=== PATIENT | female | born 1985 | race Caucasian/White ===

== ENCOUNTER → 2017-04-25 | Outpatient (CLI) | payer BC ==
[2017-04-25 17:04] LABS: % Iron Saturation 39.6 % (20-50)
== END ==
LOC: MMGSC 11:42
PROVIDERS: ATTEND Family Medicine
DX: M79.1 Myalgia (principal); R53.83 Other fatigue; L03.90 Cellulitis, unspecified
CPT/HCPCS: 36415; 82728; 83540; 83550; 83735; 87070; 87075; 87205

== ENCOUNTER → 2021-02-22 | Outpatient (CLI) | payer BC ==
--- NOTE | 2021-02-22 13:51 | MM ---
Reason for exam: screening (asymptomatic). Baseline mammogram. History: Family history of breast cancer in maternal grandmother at age 40. Physical Findings: Nurse did not find any significant physical abnormalities on exam. MG 3D Screening Mammo W/Cad Bilateral CC and MLO view(s) were taken. The breast tissue is heterogeneously dense. This may lower the sensitivity of mammography. There is no discrete abnormality. These results were verbally communicated with the patient and result sheet given to the patient on 02/22/21. ASSESSMENT: Negative, BI-RAD 1 RECOMMENDATION: Routine screening mammogram of both breasts at age 39.
== END | disposition home or self-care (01) ==
LOC: RADMAMWWP 12:29
PROVIDERS: ATTEND Family Medicine
DX: Z12.31 Encounter for screening mammogram for malignant neoplasm of breast (principal)
CPT/HCPCS: 77063; 77067

== ENCOUNTER 2022-08-22 18:26 | Emergency (ER) | payer OTHER ==
[2022-08-22 18:32] VITALS: TEMP 98
[2022-08-22] MEDS ORDERED: MECLIZINE 12.5 MG TAB PO STA (19:59)
[2022-08-22] MEDS ORDERED: SODIUM CHLORIDE 0.9% 1,000 ML IV STA (19:59)
[2022-08-22 20:31] LABS: Basophils # (A) 0.1 k/uL (0-0.2); Basophils % (A) 1 %; Eosinophils # (A) 0.1 k/uL (0-0.7); Eosinophils % (A) 1 %; HCT 38.5 % (34.0-46.0); HGB 13.5 gm/dL (11.4-16.0); Lymphocytes # (A) 1.8 k/uL (1.0-4.8); Lymphocytes % (A) 17 %; MCH 30.7 pg (25.0-35.0); MCHC 35.1 g/dL (31.0-37.0); MCV 87.5 fL (80.0-100.0); Mean Platelet Volume 7.6; Monocytes # (A) 0.5 k/uL (0-1.0); Monocytes % (A) 5 %; Neutrophils # (A) 8.1 k/uL (1.3-7.7); Neutrophils % (A) 76 %; Platelet Count 247 k/uL (150-450); RDW 12.4 % (11.5-15.5); WBC 10.7 k/uL (3.8-10.6)
[2022-08-22 20:35] LABS: Appearance,Urine Cloudy (Clear); Bacteria,Urine Rare /hpf; Bilirubin,Urine Negative (Negative); Blood,Urine Negative (Negative); Color,Urine Light Yellow; Glucose,Urine (UA) Negative (Negative); Ketones,Urine Negative (Negative); Leukocyte Esterase,Urine Trace (Negative); Mucus,Urine Rare /hpf; Nitrite,Urine Negative (Negative); PH, Urine 7.5 (5.0-8.0); Protein,Urine Negative (Negative); RBC,Urine <1 /hpf (0-5); Squamous Epithelial Cell,Urine 10 /hpf (0-4); Urobilinogen,Urine <2.0 mg/dL (<2.0); WBC,Urine 4 /hpf (0-5)
[2022-08-22 20:49] LABS: ALT 19 U/L (4-34); AST 22 U/L (14-36); African American GFR (CKD) >90 (>60 ml/min/1.73 sqM); Albumin 4.4 g/dL (3.5-5.0); Alkaline Phosphatase 52 U/L (38-126); Anion Gap 13 mmol/L; Blood Urea Nitrogen 12 mg/dL (7-17); Carbon Dioxide 25 mmol/L (22-30); Chloride 101 mmol/L (98-107); Glucose 81 mg/dL (74-99); Non-African American GFR(CKD) >90 (>60 ml/min/1.73 sqM); Potassium 3.1 mmol/L (3.5-5.1); Sodium 139 mmol/L (137-145); Total Bilirubin 0.3 mg/dL (0.2-1.3); Total Protein 6.9 g/dL (6.3-8.2)
[2022-08-22] MEDS ORDERED: POTASSIUM CHLORIDE ER 20 MEQ TAB.ER PO STA (20:53)
--- NOTE | 2022-08-22 20:54 | ED ---
Dizziness HPI - General Source: patient Mode of arrival: ambulatory Limitations: no limitations <Marcelina Perkins - Last Filed: 08/22/22 22:00> <Nino Jeffrey - Last Filed: 08/22/22 23:53> - General Chief Complaint: Dizziness Stated Complaint: hypertension Time Seen by Provider: 08/22/22 18:49 - History of Present Illness Initial Comments: 37-year-old female with past history of hypertension, seizure disorder who presents to the emergency department with dizziness. Patient reports to an upper respiratory infection for the past 2 weeks. Admits that she has had cough, sinus pressure. She took a Covid test which was negative. States that today she woke up with vertiginous symptoms. Feels as if the room is spinning. Symptoms are not worse with positional changes. Denies ear pain or sore throat. She also has a dull frontal headache. No visual changes. No history of similar in the past. Denies any lateralizing symptoms. No facial droop or slurred speech. Denies ataxic gait. She went to an urgent care where they told her that her blood pressure was elevated. She used to take Norvasc 2.5 mg however was taken off one month ago by her primary care physician. She called her primary care after the urgent care visit and they told her that she should start taking her Norvasc again. She did take a dose around 4 PM today. They recommended that if she continues to have symptoms that she needed to be department. She denies any chest pain, shortness of breath, nausea, vomiting. No concern for . No other alleviating, precipitating or modifying factors (Marcelina Perkins) - Related Data Home Medications Medication Instructions Recorded Confirmed Dextroamphetamine/Amphetamine 20 mg PO BID 08/22/22 08/22/22 [Adderall 20 mg Tablet] FLUoxetine HCL 40 mg PO DAILY 08/22/22 08/22/22 amLODIPine [Norvasc] 2.5 mg PO DAILY 08/22/22 08/22/22 Previous Rx's Medication Instructions Recorded Meclizine [Antivert] 25 mg PO TID PRN 7 Days #21 tab 08/22/22 diazePAM [Valium] 2 mg PO BID PRN 3 Days #6 tab 08/22/22 Allergies Allergy/AdvReac Type Severity Reaction Status Date / Time No Known Allergies Allergy Verified 08/22/22 22:40 Review of Systems ROS Other: All systems not noted in ROS Statement are negative. <Marcelina Perkins - Last Filed: 08/22/22 22:00> ROS Other: All systems not noted in ROS Statement are negative. <Nino Jeffrey - Last Filed: 08/22/22 23:53> ROS Statement: Those systems with pertinent positive or pertinent negative responses have been documented in the HPI. Past Medical History Past Medical History: Hypertension, Osteoarthritis (OA), Seizure Disorder Additional Past Medical History / Comment(s): seizure in 2001 History of Any Multi-Drug Resistant Organisms: None Reported Past Surgical History: Orthopedic Surgery Additional Past Surgical History / Comment(s): Bunionectomy on the right foot followed by 2 reconstructive surgeries Past Anesthesia/Blood Transfusion Reactions: No Reported Reaction Past Psychological History: Anxiety, Depression Smoking Status: Never smoker Past Alcohol Use History: None Reported Past Drug Use History: None Reported - Past Family History Mother Additional Family Medical History / Comment(s): Mother is alive at age 50 with history of thoracic aortic aneurysm and aortic valve replacement Father Additional Family Medical History / Comment(s): Father is alive at age 51 with history of Wemwh-Zuqxhlpex-Tarcf syndrome Brother(s) Additional Family Medical History / Comment(s): She has one brother with cardiomegaly. She has one sister that is healthy with no major medical pro blems. Patient states she has a grandfather that at age 55 from a myocardial infarction. <Marcelina Perkins - Last Filed: 08/22/22 22:00> General Exam Limitations: no limitations General appearance: alert, in no apparent distress Head exam: Present: atraumatic, normocephalic, normal inspection Eye exam: Present: normal appearance, PERRL, EOMI, nystagmus. Absent: scleral icterus, conjunctival injection, periorbital swelling ENT exam: Present: normal exam, mucous membranes moist Neck exam: Present: normal inspection. Absent: tenderness, meningismus, lymphadenopathy Respiratory exam: Present: normal lung sounds bilaterally. Absent: respiratory distress, wheezes, rales, rhonchi, stridor Cardiovascular Exam: Present: regular rate, normal rhythm, normal heart sounds. Absent: systolic murmur, diastolic murmur, rubs, gallop, clicks GI/Abdominal exam: Present: soft, normal bowel sounds. Absent: distended, tenderness, guarding, rebound, rigid Extremities exam: Present: normal inspection, full ROM, normal capillary refill. Absent: tenderness, pedal edema, joint swelling, calf tenderness Back exam: Present: normal inspection Neurological exam: Present: alert, oriented X3, CN II-XII intact Psychiatric exam: Present: normal affect, normal mood Skin exam: Present: warm, dry, intact, normal color. Absent: rash <Marcelina Perkins - Last Filed: 08/22/22 22:00> Course Vital Signs 08/22/22 08/22/22 08/22/22 18:27 20:10 21:52 Temperature 98 F Pulse Rate 89 79 70 Respiratory 16 16 18 Rate Blood Pressure 139/72 140/79 141/81 O2 Sat by Pulse 100 100 100 Oximetry 08/22/22 23:05 Temperature Pulse Rate 75 Respiratory 18 Rate Blood Pressure 144/74 O2 Sat by Pulse 98 Oximetry EKG Findings - EKG Comments: EKG Findings:: EKG demonstrates sinus rhythm with a rate of 79. TN interval 169. QRS 96. QTC of 415. No acute ST segment elevations or depressions concerning for ischemic changes. No signs of Eqelt-Hkzmlnodg-Bcoxa or Brugada <Marcelina Perkins - Last Filed: 08/22/22 22:00> Medical Decision Making - Lab Data Result diagrams: 08/22/22 20:07 08/22/22 20:07 <Marcelina Perkins - Last Filed: 08/22/22 22:00> - Lab Data Result diagrams: 08/22/22 20:07 08/22/22 20:07 <Nino Jeffrey - Last Filed: 08/22/22 23:53> - Medical Decision Making Upon arrival patient was placed into room 21. Thorough history and physical exam was performed. Patient does have horizontal nystagmus. She is given a dose of meclizine. Laboratory studies are conducted. Patient remains on continuous pulse ox and cardiac monitoring. Patient is reevaluated after the meclizine and continues to have symptoms. Because of this I did offer her CT exam of the patient's head. Patient is agreeable with this. She is additionally given 2 mg of Valium. Patient will be signed off to Dr. Jeffrey (Marcelina Perkins) Patient is signed out to me pending results of CT imaging for her vertigo. Workup thus far has been negative. CT imaging shows no acute intracranial process. CT angiogram shows no acute process. On reevaluation, patient's vertiginous symptoms have resolved following Valium. She is able to ambulate without difficulty. Neuro exam is within normal limits. We discussed that she is likely having vertigo, possibly from the recent URI she was having. I believe it is safer to be discharged home at this time as her symptoms resolved. She'll be given anti-vertiginous medications. Instructed to follow-up with her PCP. She was in agreement this plan. I instructed the patient to follow up with their PCP in the next 1-3 days. I explained that the patient should return to the emergency department if they experience any worsening symptoms. Strict return precautions were discussed with the patient. The patient expressed understanding of these instructions. I answered all questions that the patient had. The patient was discharged home in good condition with their prescriptions and follow up information. (Nino Jeffrey) - Lab Data Lab Results 08/22/22 08/22/22 08/22/22 Range/Units 20:07 20:07 20:07 WBC 10.7 H (3.8-10.6) k/uL RBC 4.40 (3.80-5.40) m/uL Hgb 13.5 (11.4-16.0) gm/dL Hct 38.5 (34.0-46.0) % MCV 87.5 (80.0-100.0) fL MCH 30.7 (25.0-35.0) pg MCHC 35.1 (31.0-37.0) g/dL RDW 12.4 (11.5-15.5) % Plt Count 247 (150-450) k/uL MPV 7.6 Neutrophils % 76 % Lymphocytes % 17 % Monocytes % 5 % Eosinophils % 1 % Basophils % 1 % Neutrophils # 8.1 H (1.3-7.7) k/uL Lymphocytes # 1.8 (1.0-4.8) k/uL Monocytes # 0.5 (0-1.0) k/uL Eosinophils # 0.1 (0-0.7) k/uL Basophils # 0.1 (0-0.2) k/uL Sodium 139 (137-145) mmol/L Potassium 3.1 L (3.5-5.1) mmol/L Chloride 101 (98-107) mmol/L Carbon Dioxide 25 (22-30) mmol/L Anion Gap 13 mmol/L BUN 12 (7-17) mg/dL Creatinine 0.80 (0.52-1.04) mg/dL Est GFR (CKD-EPI)AfAm >90 (>60 ml/min/1.73 sqM) Est GFR (CKD-EPI)NonAf >90 (>60 ml/min/1.73 sqM) Glucose 81 (74-99) mg/dL Calcium 9.0 (8.4-10.2) mg/dL Total Bilirubin 0.3 (0.2-1.3) mg/dL AST 22 (14-36) U/L ALT 19 (4-34) U/L Alkaline Phosphatase 52 (38-126) U/L Troponin I (0.000-0.034) ng/mL Total Protein 6.9 (6.3-8.2) g/dL Albumin 4.4 (3.5-5.0) g/dL Urine Color Light Yellow Urine Appearance Cloudy H (Clear) Urine pH 7.5 (5.0-8.0) Ur Specific [place] 1.010 (1.001-1.035) Urine Protein Negative (Negative) Urine Glucose (UA) Negative (Negative) Urine Ketones Negative (Negative) Urine Blood Negative (Negative) Urine Nitrite Negative (Negative) Urine Bilirubin Negative (Negative) Urine Urobilinogen <2.0 (<2.0) mg/dL Ur Leukocyte Esterase Trace H (Negative) Urine RBC <1 (0-5) /hpf Urine WBC 4 (0-5) /hpf Ur Squamous Epith Cells 10 H (0-4) /hpf Urine Bacteria Rare H (None) /hpf Urine Mucus Rare H (None) /hpf Urine HCG, Qual (Not Detectd) 08/22/22 08/22/22 Range/Units 20:07 20:07 WBC (3.8-10.6) k/uL RBC (3.80-5.40) m/uL Hgb (11.4-16.0) gm/dL Hct (34.0-46.0) % MCV (80.0-100.0) fL MCH (25.0-35.0) pg MCHC (31.0-37.0) g/dL RDW (11.5-15.5) % Plt Count (150-450) k/uL MPV Neutrophils % % Lymphocytes % % Monocytes % % Eosinophils % % Basophils % % Neutrophils # (1.3-7.7) k/uL Lymphocytes # (1.0-4.8) k/uL Monocytes # (0-1.0) k/uL Eosinophils # (0-0.7) k/uL Basophils # (0-0.2) k/uL Sodium (137-145) mmol/L Potassium (3.5-5.1) mmol/L Chloride (98-107) mmol/L Carbon Dioxide (22-30) mmol/L Anion Gap mmol/L BUN (7-17) mg/dL Creatinine (0.52-1.04) mg/dL Est GFR (CKD-EPI)AfAm (>60 ml/min/1.73 sqM) Est GFR (CKD-EPI)NonAf (>60 ml/min/1.73 sqM) Glucose (74-99) mg/dL Calcium (8.4-10.2) mg/dL Total Bilirubin (0.2-1.3) mg/dL AST (14-36) U/L ALT (4-34) U/L Alkaline Phosphatase (38-126) U/L Troponin I <0.012 (0.000-0.034) ng/mL Total Protein (6.3-8.2) g/dL Albumin (3.5-5.0) g/dL Urine Color Urine Appearance (Clear) Urine pH (5.0-8.0) Ur Specific [place] (1.001-1.035) Urine Protein (Negative) Urine Glucose (UA) (Negative) Urine Ketones (Negative) Urine Blood (Negative) Urine Nitrite (Negative) Urine Bilirubin (Negative) Urine Urobilinogen (<2.0) mg/dL Ur Leukocyte Esterase (Negative) Urine RBC (0-5) /hpf Urine WBC (0-5) /hpf Ur Squamous Epith Cells (0-4) /hpf Urine Bacteria (None) /hpf Urine Mucus (None) /hpf Urine HCG, Qual Not Detected (Not Detectd) Disposition Is patient prescribed a controlled substance at d/c from ED?: No <Marcelina Perkins - Last Filed: 08/22/22 22:00> Is patient prescribed a controlled substance at d/c from ED?: Yes When asked, does pt state using other controlled substances?: No If prescribed controlled substance>3 days was MAPS reviewed?: Prescribed <3 Days If opioid is for acute pain is fill amount 7 days or less?: No Time of Disposition: 23:40 <Nino Jeffrey - Last Filed: 08/22/22 23:53> Clinical Impression: Vertigo Disposition: HOME SELF-CARE Condition: Stable Instructions (If sedation given, give patient instructions): Dizziness (ED) Additional Instructions: Please follow-up with your primary care doctor in 2-4 days and return for any new or worsening symptoms Prescriptions: Meclizine [Antivert] 25 mg PO TID PRN 7 Days #21 tab PRN Reason: Vertigo diazePAM [Valium] 2 mg PO BID PRN 3 Days #6 tab PRN Reason: Vertigo Referrals: Erica Bocanegra MD [Primary Care Provider] - 1-2 days
[2022-08-22 21:52] VITALS: RESP 18
--- NOTE | 2022-08-22 23:05 | CT ---
EXAMINATION TYPE: CT brain wo con DATE OF EXAM: 08/22/2022 COMPARISON: None HISTORY: vertigo. CT DLP: 1727.1 mGycm Automated exposure control for dose reduction was used. Ventricles have normal size. There is no mass effect or midline shift. No sign of intracranial hemorr kristi. Calvarium is intact. Skull base is intact. There is normal aeration of the mastoid sinuses. IMPRESSION: Negative unenhanced head CT scan.
--- NOTE | 2022-08-22 23:16 | CT ---
EXAMINATION TYPE: CT angio head neck DATE OF EXAM: 08/22/2022 COMPARISON: None HISTORY: vertigo. CT DLP: 1727.1 mGycm Automated exposure control for dose reduction was used. CONTRAST: Performed with IV Contrast, patient injected with 65ml mL of Isovue 370. Images obtained from the aortic arch to the vertex of the brain with the IV contrast. There are Three -D postprocessed images. There is normal branching pattern of the great vessels on the aortic arch. There is bilateral arteria l flow in the subclavian arteries. There is arterial flow in the common internal and external cardiac arteries bilaterally. There is wide patency of the carotid artery bifurcations. There is arterial fl ow in both vertebral arteries. There is arterial flow in the vertebrobasilar artery system. No evidence of carotid or vertebral artery aneurysm or dissection. There is arterial flow in the anterior middle and posterior cerebral arteries bilaterally. No mass ef fect. No evidence of intracranial aneurysm or neovascularity. No evidence of intracranial hemodynamic arterial stenosis. There is normal enhancement of the venous sinuses. IMPRESSION: Normal CT angiogram of the neck. Normal CT angiogram of the brain.
[2022-08-23 00:43] VITALS: BP 138/79; PULSE 72
== END 2022-08-23 00:42 | disposition home or self-care (01) ==
LOC: EC 18:26
DX: R42 Dizziness and giddiness (principal); I10 Essential (primary) hypertension; M19.90 Unspecified osteoarthritis, unspecified site; G40.909 Epilepsy, unspecified, not intractable, without status epilepticus; F41.9 Anxiety disorder, unspecified; F32.A Depression, unspecified; Z79.83 Long term (current) use of bisphosphonates; Z79.899 Other long term (current) drug therapy
CPT/HCPCS: 36415; 93005; 80053; 84484; 85025; 81001; 81025; 70496; 70450; 70498; 99285; 96374; 96361 ×3; J3360; Q9967